=== PATIENT | female | born 1995 | race Caucasian/White ===

== ENCOUNTER 2017-02-06 18:04 | Emergency (ER) | payer BC ==
[~2017-02-06] VITALS: Ht 160 cm; Wt 70.6 kg
[~2017-02-06 18:04] MED LIST: ABILIFY10 MG PO; ADVAIR 500/501 DISK IH; AEROCHAMBER MA1 EACH MC; BUSPAR; BUSPAR10 MG PO; FLEXERIL5 MG PO; MELATONIN5 M1 PO; NAPROSYN500 MG PO; NEURONTIN; NORCO 5/3251 TABLET PO; SEROQUEL XR150 MG PO; SEROQUEL50 MG PO; SINGULAIR10 MG PO; TOPAMAX; VENTOLIN HFA18 GM IH; ZOFRAN ODT4 MG PO; ZYRTEC10 M2 PO
[2017-02-06] MEDS ORDERED: INDOCIN50 MG PO (19:21)
[2017-02-06] MEDS ORDERED: VALIUM5 MG PO (19:21)
[2017-02-06] MEDS ORDERED: LIDODERM 5% P1 PATCH TD (19:21)
[2017-02-06 19:37] VITALS: BP 132/85
== END 2017-02-06 19:37 | disposition home or self-care (01) ==
LOC: EME 18:04
DX: S39.012A Strain of muscle, fascia and tendon of lower back, initial encounter (principal); X50.9XXA Other and unspecified overexertion or strenuous movements or postures, initial encounter; Y99.0 Civilian activity done for income or pay; J45.909 Unspecified asthma, uncomplicated; F17.200 Nicotine dependence, unspecified, uncomplicated
CPT/HCPCS: 99281; 99284

== ENCOUNTER 2017-08-01 19:41 | Emergency (ER) | payer BC ==
[~2017-08-01] VITALS: Ht 160 cm; Wt 63.9 kg
[~2017-08-01 19:41] MED LIST changes: +INDOCIN50 MG PO; +LIDODERM 5% P1 PATCH TD; +VALIUM5 MG PO
[2017-08-01 21:07] LABS: HEMATOCRIT 43.7 % (36.0-46.0); MCH 30.4 PG (29.0-34.0); MCHC 33.6 G/DL (30.0-36.0); MCV 90.5 FL (83-99); MEAN PLAT.VOLUME 10.7 uM^3 (9.5-12.4); PLATELET COUNT 251 K/uL (156-360); RBC DIS.WIDTH-CV 12.1 % (11.8-14.6); RBC DIS.WIDTH-SD 40.3 % (39-53); RED BLOOD COUNT 4.83 M/uL (3.80-5.20); WHITE BLOOD COUNT 7.5 K/uL (4.1-10.2)
[2017-08-01 21:17] LABS: CHLORIDE 103 mEq/L (99-109); POTASSIUM 4.1 mEq/L (3.7-5.4); SODIUM 140 mEq/L (136-147)
[2017-08-01 21:20] LABS: GLUCOSE 84 mg/dL (70-99)
[2017-08-01 21:21] LABS: ANION GAP 13 MEQ/L (2-14)
[2017-08-01 21:22] LABS: TOTAL BILIRUBIN 0.9 mg/dL (0.0-1.0)
[2017-08-01 21:23] LABS: ALKALINE PHOSPHATASE 59 IU/L (3-129)
[2017-08-01 21:24] LABS: GFR ESTIMATE (CALCULATED) > 59 mL/min/
[2017-08-01 21:25] LABS: DIRECT BILIRUBIN 0.3 mg/dL (0.0-0.3); UREA NITROGEN (BUN) 9 mg/dL (9-23)
[2017-08-01 21:27] LABS: LIPASE 12 U/L (1.0-51.0)
[2017-08-01 21:33] LABS: QUANTITATIVE HCG < 4.0 MIU/ML
[2017-08-02 00:05] LABS: ADD MIUA? YES; BILIRUBIN NEGATIVE; BLOOD NEGATIVE; COLOR YELLOW ((YELLOW)); GLUCOSE (STRIP) NEGATIVE; KETONES NEGATIVE; LEUKOCYTES SMALL; NITRITE NEGATIVE; PROTEIN (STRIP) NEGATIVE; SPECIFIC GRAVITY 1.039 (1.000-1.030); UROBILINOGEN 0.2 MG/DL (0.2-1.0)
[2017-08-02 00:26] LABS: BACTERIA RARE /HPF; CASTS NONE SEEN /LPF; CRYSTALS NONE SEEN; EPITHELIAL CELLS RARE /HPF; MUCUS NONE SEEN /LPF; RED BLOOD CELLS 0-5 /HPF (0-5); UCUL ADDED? YES
[2017-08-02 01:33] VITALS: BP 107/65
[2017-08-03 13:42] LABS: CHLAMYDIA TRACHOMATIS POSITIVE; NEISSERIA GONORRHOEAE POSITIVE
== END 2017-08-02 01:34 | disposition left against medical advice (07) ==
LOC: RME 19:41 → EME 19:41 → RME 08-02 01:34
PROVIDERS: Emergency Medicine
DX: R10.31 Right lower quadrant pain (principal); R11.2 Nausea with vomiting, unspecified; K59.00 Constipation, unspecified; J45.909 Unspecified asthma, uncomplicated; F17.200 Nicotine dependence, unspecified, uncomplicated; Z53.20 Procedure and treatment not carried out because of patient's decision for unspecified reasons
CPT/HCPCS: 74177; 80048; 80076; 81003; 83605; 83690; 84702; 85027; 87040; 87086; 87491; 87591; 99281; 99285; J2270; J2405; J7030

== ENCOUNTER 2018-02-11 16:49 | Inpatient (IN) | payer BC ==
[~2018-02-11] VITALS: Ht 165.1 cm; Wt 45.0 kg
[~2018-02-11 16:49] MED LIST changes: -VENTOLIN HFA18 GM IH
[2018-02-11 18:04] LABS: BASOPHIL (%) 0.4 % (0-1); EOSINOPHIL (%) 0.2 % (0-5); HEMATOCRIT 39.8 % (36.0-46.0); HEMOGLOBIN 13.4 G/DL (11.9-15.5); IMMATURE GRANULOCYTE (%) 0.5 % (0.0-0.7); LYMPHOCYTE (%) 15.9 % (15-42); LYMPHOCYTE COUNT 1.5 K/uL (1.0-2.8); MCH 30.2 PG (29.0-34.0); MCHC 33.7 G/DL (30.0-36.0); MCV 89.8 FL (83-99); MONOCYTE (%) 5.7 % (3-12); MONOCYTE COUNT 0.5 K/uL (0-0.8); NEUTROPHIL (%) 77.3 % (45-76); NEUTROPHIL COUNT 7.1 K/uL (1.8-6.4); PLATELET COUNT 319 K/uL (156-360); RBC DIS.WIDTH-CV 12.4 % (11.8-14.6); RBC DIS.WIDTH-SD 40.8 % (39-53); RED BLOOD COUNT 4.43 M/uL (3.80-5.20); WHITE BLOOD COUNT 9.1 K/uL (4.1-10.2)
[2018-02-11 18:12] LABS: APPEARANCE CLEAR ((CLEAR)); BILIRUBIN NEGATIVE; BLOOD NEGATIVE; COLOR YELLOW ((YELLOW)); GLUCOSE (STRIP) NEGATIVE; KETONES 5; LEUKOCYTES TRACE; NITRITE NEGATIVE; PROTEIN (STRIP) 30; SPECIFIC GRAVITY 1.023 (1.000-1.030)
[2018-02-11 18:16] LABS: CHLORIDE 110 mEq/L (99-109)
[2018-02-11 18:17] LABS: BACTERIA NONE SEEN /HPF; EPITHELIAL CELLS 1+ /HPF; HYALINE CASTS 0-5 /LPF; MUCUS 3+ /LPF
[2018-02-11 18:17] LABS: POTASSIUM 4.1 mEq/L (3.7-5.4); SODIUM 142 mEq/L (136-147)
[2018-02-11 18:18] LABS: GLUCOSE 101 mg/dL (70-99)
[2018-02-11 18:21] LABS: SERUM ETHYL ALCOHOL < 10 mg/dL
[2018-02-11 18:22] LABS: CREATININE 0.8 mg/dL (0.6-1.3); GFR ESTIMATE (CALCULATED) > 59 mL/min/
[2018-02-11 18:23] LABS: UREA NITROGEN (BUN) 8 mg/dL (9-23)
[2018-02-11 18:23] LABS: AMPHETAMINE NEGATIVE (500 ng/mL); BARBITURATES NEGATIVE (200 ng/mL); BENZODIAZEPINES NEGATIVE (150 ng/mL); BUPRENORPHINE NEGATIVE (10 ng/mL); COCAINE PRESUMPTIVE POSITIVE (150 ng/mL); METHADONE NEGATIVE (200 ng/mL); METHAMPHETAMINE NEGATIVE (500 ng/mL); OPIATES (MORPHINE) PRESUMPTIVE POSITIVE (100 ng/mL); OXYCODONE NEGATIVE (100 ng/mL); PHENCYCLIDINE NEGATIVE (25 ng/mL); PROPOXYPHENE NEGATIVE (300 ng/mL); THC CANNABINOIDS PRESUMPTIVE POSITIVE (50 ng/mL); TRICYCLIC ANTIDEPRESSANTS NEGATIVE (300 ng/mL)
[2018-02-11 18:31] LABS: QUANTITATIVE HCG < 4.0 MIU/ML
[2018-02-11] MEDS ORDERED: VENTOLIN HFA18 GM IH (22:29)
[2018-02-12 09:42] VITALS: BP 132/67
[2018-02-12 16:04] VITALS: BP 110/59
[2018-02-13 10:06] VITALS: BP 104/56
[2018-02-13 16:43] VITALS: BP 113/58
[2018-02-14 08:49] VITALS: BP 100/60
[2018-02-14 16:07] VITALS: BP 124/70
[2018-02-15 07:56] VITALS: BP 114/66
[2018-02-15] MEDS ORDERED: ZIPRASIDONE HCL20 MG PO (10:40)
[2018-02-15] MEDS ORDERED: DESYREL100 MG PO (10:40)
== END 2018-02-15 16:07 | disposition home or self-care (01) | DRG 897 ==
LOC: EME 16:49 → 1WEST 20:24 → EDOF 20:24 → ENRESERV 21:55 → 1WEST 21:56
PROVIDERS: Emergency Medicine
DX: F11.23 Opioid dependence with withdrawal (principal); F11.24 Opioid dependence with opioid-induced mood disorder; R45.851 Suicidal ideations; J45.909 Unspecified asthma, uncomplicated; F17.200 Nicotine dependence, unspecified, uncomplicated; Z91.14 Patient's other noncompliance with medication regimen; Z91.19 Patient's noncompliance with other medical treatment and regimen
CPT/HCPCS: 80048; 81003; 84702; 84999; 85025; 90837; 97150 GO; 97165 GO; 99202; 99281; 99284; G0480; J0572; J0574; Q0169; Q0177